=== PATIENT | female | born 1975 | race Caucasian/White ===

== ENCOUNTER 2018-12-07 21:17 | Emergency (ER) | payer OTHER ==
[~2018-12-07] VITALS: Ht 157.5 cm; Wt 79.4 kg
[2018-12-07 21:25] VITALS: Ht 157.5 cm; Wt 79.4 kg
[2018-12-07 22:03] LABS: BASOPHIL % 0.3 % (0-2); PLATELET COUNT 312 x10^3mcL (130-400); RED CELL DISTRIBUTION WIDTH 13.6 % (11.5-14.5)
[2018-12-07 22:21] LABS: CALCIUM 9.4 mg/dL (8.5-10.1); CARBON DIOXIDE 27.2 mmol/L (21-32); CHLORIDE SERUM 103 mmol/L (98-107); CREATININE SERUM 0.7 mg/dL (0.6-1.0); GFR1 > 60 mL/min; GLUCOSE SERUM 88 mg/dL (74-106); POTASSIUM SERUM 3.8 mmol/L (3.5-5.1); SODIUM SERUM 139 mmol/L (136-145)
[2018-12-07 22:26] LABS: ALBUMIN 3.9 g/dL (3.4-5.0); ALKALINE PHOSPHATASE 61 U/L (46-116); ALT/SGPT 51 U/L (14-59); AST/SGOT 37 U/L (15-37); BILIRUBIN TOTAL 0.47 mg/dL (0.20-1.00); LIPASE 97 IU/L (73-393); TOTAL PROTEIN, SERUM 8.1 g/dL (6.4-8.2)
[2018-12-07 23:46] LABS: microscopic required? YES; urine erythrocyte 1+ (NEGATIVE)
[2018-12-08 02:40] VITALS: BP 153/91
== END 2018-12-08 02:40 | disposition home or self-care (01) ==
LOC: ED 21:17
PROVIDERS: Emergency Medicine
DX: R07.9 Chest pain, unspecified (principal); I10 Essential (primary) hypertension; N39.0 Urinary tract infection, site not specified
CPT/HCPCS: 36415; 83880; 85378

== ENCOUNTER 2019-09-15 22:54 | Emergency (ER) | payer OTHER ==
[~2019-09-15] VITALS: Ht 157.5 cm; Wt 80.3 kg
[2019-09-15 23:00] VITALS: Ht 157.5 cm; Wt 80.3 kg
[2019-09-16 04:10] VITALS: BP 140/83
== END 2019-09-16 04:15 | disposition home or self-care (01) ==
LOC: ED 22:54
DX: T78.2XXA Anaphylactic shock, unspecified, initial encounter (principal); T78.49XA Other allergy, initial encounter; X58.XXXA Exposure to other specified factors, initial encounter
CPT/HCPCS: J0171; J1100; J1200